=== PATIENT | male | born 1955 | race Caucasian/White ===

== ENCOUNTER 2024-02-27 11:23 | Inpatient (IN) | payer OTHER ==
[2024-02-27] MEDS ORDERED: MECLIZINE HCL 12.5 MG TAB ONE (12:10)
[2024-02-27] MEDS ORDERED: NA CHLORIDE 0.9% 500 ML ONE (12:10)
[2024-02-27 12:39] LABS: Absolute Lymphocytes (CBC) 0.8 K/uL (0.7-4.9); Absolute Monocytes 1.3 K/uL (0.1-1.3); Absolute Neutrophil 15.7 K/uL (1.8-8.0); Basophils % 0.2 % (0-1.3); Hemoglobin 15.9 g/dL (13.6-17.9); Lymphocytes % 4.4 % (15.3-44.8); MCH 30.1 pg (27.0-35.0); MCHC 33.1 g/dL (32.0-36.0); MPV 8.5 fL (7.6-11.3); Monocytes % 7.2 % (3.3-12.3); Neutrophils % 88.2 % (41.7-73.7); Platelets 268 thou/uL (152-406); RBC Red Blood Cell Count 5.28 M/uL (4.33-5.43); Red Cell Distribution Width 14.9 % (12.1-15.2)
[2024-02-27 12:49] LABS: PT Prothrombin Time 12.3 SECONDS (9.4-12.5); PTT, Activated Partial Thromb 31.1 SECONDS (24.3-36.9); Protime INR 1.1
[2024-02-27 13:00] LABS: Anion Gap 18.9 mEq/L (5.0-15.0)
[2024-02-27 13:02] LABS: Potassium 3.9 mEq/L (3.5-5.1)
[2024-02-27] MEDS ORDERED: METOPROLOL TAR 25 MG TAB ONE ×2 (13:09→15:45)
[2024-02-27] MEDS ORDERED: METOPROLOL TARTRATE 5 MG/5 ML INJ IV ONE (13:10)
[2024-02-27] MEDS ORDERED: MAGNESIUM SULFATE 1 gm IVPB 1 GM/100 ML BAG IV ONE (13:10)
--- NOTE | 2024-02-27 13:30 | RAD REPORT ---
EXAMINATION: CT HEAD WITHOUT CONTRAST CLINICAL INDICATION: Male, 69 years old.DIZZINESS TECHNIQUE: Axial CT images from the skull base to the vertex without intravenous contrast. Coronal an d sagittal reformatted images were created from the data set. One or more of the following dose reduction techniques were used: Automated exposure control, adjustment of the mA and/or kV according to patient size, and/or iterative reconstruction. Unless otherwise specified, incidental findings do not require dedicated imaging follow-up. [id number]. COMPARISON: No prior exam. FINDINGS: INTRACRANIAL: No acute intracranial hemorrhage. No hydrocephalus. No mass effect or midline shift. Pr esumably remote left cerebellar hemisphere infarct. Mild chronic small vessel ischemic changes. VASCULATURE: No visualized abnormalities in the arteries or dural venous sinuses. SCALP/SKULL: No significant soft tissue or osseous abnormalities. SINUSES: The visualized paranasal sinuses and mastoid air cells are predominantly clear. 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 No acute intracranial abnormality. No large vascular territory infarction or intracranial hemorrhage.
--- NOTE | 2024-02-27 13:35 | RAD REPORT ---
EXAMINATION: CTA NECK CLINICAL INDICATION: Male, 69 years old. hx of cerebellar stroke, dizzy TECHNIQUE: Axial CT images were obtained from the aortic arch to the skull base after intravenous con trast utilizing angiographic protocol with 3D post-processing (maximum intensity projection images, volume rendered images and/or shaded surface rendered images). One or more of the following dose redu ction techniques were used: Automated exposure control, adjustment of the mA and/or kV according to patient size, and/or iterative reconstruction. Unless otherwise specified, incidental findings do not require dedicated imaging follow-up. [id number]. NASCET criteria used. Mild 0-49% stenosis Moderate 50-69% stenosis Severe 70-99% stenosis COMPARISON: No prior exam. FINDINGS: AORTA: The imaged aortic arch is normal. CCA: The common carotid arteries are patent and normal in caliber. ICA/ECA: Bilateral internal and external carotid arteries are patent. There is no significant interna l carotid artery stenosis. Where applicable, degree of stenosis is measured using NASCET-like criteria. VERTEBRAL: Left dominant. Patent. SOFT TISSUE: No significant neck soft tissue abnormalities. The visualized lung apices are clear. 3D images confirm these findings. IMPRESSION: No flow limiting stenosis within neck. No dissection.
--- NOTE | 2024-02-27 13:39 | RAD REPORT ---
EXAMINATION: CTA HEAD CLINICAL INDICATION: Male, 69 years old. DIZZY TECHNIQUE: Axial CT images were obtained through the head after intravenous contrast utilizing angiog raphic protocol with 3D post-processing (maximum intensity projection images, volume rendered images and/or shaded surface rendered images). One or more of the following dose reduction technique s were used: Automated exposure control, adjustment of the mA and/or kV according to patient size, and/or iterative reconstruction. Unless otherwise specified, incidental findings do not require dedic ated imaging follow-up. COMPARISON: No prior exam. FINDINGS: ICA: The petrous, cavernous, and supraclinoid segments of the bilateral internal carotid arteries are normal. The ophthalmic artery origins are visualized and normal. The posterior communicating arteries are patent. JOHNNY: Anterior cerebral arteries are normal bilaterally. The anterior communicating artery is patent. MCA: Middle cerebral arteries are normal bilaterally. BALLISTICIAN: Posterior cerebral arteries are normal bilaterally. Vertebrobasilar: Slightly left dominant vertebral artery. Focal calcification but no flow-limiting st enosis involving the left vertebral artery. Right vertebral artery is patent. The basilar artery is patent. 3D images confirm these findings. IMPRESSION: No occlusion, aneurysm, or hemodynamically significant stenosis identified.
[2024-02-27 14:21] LABS: Blood Morphology Comment NOT SEEN (NOT SEEN); Platelet Estimate ADEQ; White Blood Cell Scan OK (OK)
--- NOTE | 2024-02-27 14:52 | RAD REPORT ---
EXAMINATION: MRI BRAIN WITHOUT CONTRAST CLINICAL INDICATION: Male, 69 years old. eval for posterior CVA TECHNIQUE: Multiplanar multisequence MR images of the brain were obtained without intravenous contras t. Unless otherwise specified, incidental findings do not require dedicated imaging follow-up. [id number]. COMPARISON: Same-day head CT FINDINGS: INTRACRANIAL: Diffusion-weighted images show no acute or early subacute infarction. No abnormal brain parenchymal signal. The ventricles are normal in size and morphology. No augmented susceptibility. There is no mass effect or midline shift. No abnormal extraaxial fluid collection. Remote left inferi or cerebellar infarct. Mild chronic small vessel ischemic changes. Partially empty sella, typically normal variant VASCULATURE: Normal signal voids in the larger intracranial arteries and dural venous sinuses. SINUSES: Left mastoid fluid. BONE: The marrow signal pattern is within normal limits. IMPRESSION: No significant intracranial abnormalities. Specifically, no evidence of acute infarct. Remote left ce rebellar infarct.
--- NOTE | 2024-02-27 15:27 | EDPHYS ---
Physician Documentation [facility] Name: Leroy Marx Age: 69 yrs Sex: Male : 1955 Arrival Date: 02/27/2024 Time: 11:23 Bed 3 Private MD: ED Physician James Waterman HPI: 02/26 12:00 This 69 yrs old Male presents to ER via Wheelchair with complaints of Dizziness. rn 12:00 The patient's problem is reported as difficulty walking. Onset: The symptoms/episode rn began/occurred 3 day(s) ago. Duration: The episodes are intermittent. The symptoms are alleviated by Laying down and not moving. The patient presents with feeling off balance. Patient reports 2 to 3 days of feeling off balance, needs to hold onto objects to not fall. Denies other focal neurological deficit. Specifically denies any vision changes/speech changes/swallowing issues/weakness or numbness. Has had a cerebellar stroke in the past and states although similar does not feel as bad as when he had the stroke.. Historical: - Allergies: 11:41 No Known Allergies; hb - PMHx: 11:42 CVA; hb - Immunization history:: Adult Immunizations up to date. - Infectious Disease History:: Denies. - Family history:: not pertinent. - Hospitalizations: : No recent hospitalization is reported. - Social history:: Smoking status: Patient denies any tobacco usage or history of. ROS: 12:00 Constitutional: Negative for fever, chills, and weight loss, Eyes: Negative for injury, rn pain, redness, and discharge, Neck: Negative for injury, pain, and swelling, Cardiovascular: Negative for chest pain, palpitations, and edema, Respiratory: Negative for shortness of breath, cough, wheezing, and pleuritic chest pain, Abdomen/GI: Positive for nausea Back: Negative for injury and pain, MS/Extremity: Negative for injury and deformity, Skin: Negative for injury, rash, and discoloration, Neuro: Negative for headache, weakness, numbness, tingling, and seizure, Exam: 12:00 Constitutional: This is a well developed, well nourished patient who is awake, alert, rn and in no acute distress. Head/Face: Normocephalic, atraumatic. Eyes: Pupils equal round and reactive to light, extra-ocular motions intact Cardiovascular: Regular rate and rhythm. No pulse deficits. Respiratory: No increased work of breathing, no retractions or nasal flaring. Skin: Warm, dry MS/ Extremity: Pulses equal, no cyanosis. Neurovascular intact. Full, normal range of motion. Equal circumference. Neuro: Awake and alert, GCS 15, oriented to person, place, time, and situation. Cranial nerves II-XII grossly intact. Motor strength 5/5 in all extremities. Sensory grossly intact. Normal vtzqjc-jt-kzsx and bktm-zy-biit testing 13:16 ECG was reviewed by the Attending Physician. rn Vital Signs: 11:39 BP 107 / 69; Pulse 68; Resp 16; Temp 97.8(TE); Pulse Ox 99% on R/A; Pain 0/10; hb 15:30 BP 133 / 107; Pulse 115; Resp 27; Pulse Ox 94% ; Weight 108.86 kg; ko1 11:39 Pain Scale: Adult hb MDM: 11:38 Medical Screening Exam initiated rn 13:38 ED course: Patient initially with heart rate in the 60s, shortly after being placed in rn room patient became tachycardic to the 150s, denies any chest pain or shortness of breath. ECG shows irregularity, slightly widened QRS, more likely a variant conduction. Metoprolol ordered for rate control as well as IV magnesium and will reevaluate. Patient denies history of arrhythmia or atrial fibrillation.. 15:25 Differential diagnosis: CVA, TIA, metabolic disorder, MT, arrhythmia. Data reviewed: rn vital signs, nurses notes, lab test result(s), EKG, radiologic studies, CT scan, MRI, and as a result, I will admit patient. Consideration of Admission/Observation Patient was admitted/placed on observation. Escalation of care including admission/observation considered. Counseling: I had a detailed discussion with the patient and/or guardian regarding the historical points, exam findings, and any diagnostic results supporting the discharge/admit diagnosis, lab results, radiology results, the need for further work-up and treatment in the hospital. Response to treatment: the patient's symptoms have mildly improved after treatment, and as a result, I will admit patient. ED course: Patient with new onset A-fib with RVR, heart rate was 150s, down to 110s with metoprolol. Patient feels better already. Father and brother both had A-fib. Does not take anticoagulants. Lovenox ordered. Admitted to Dr. Delgado for further care and cardiology consultation.. 15:45 ED course: Dr. Delgado request sotalol 80 mg twice daily and Eliquis 5 mg twice daily.. rn 02/26 11:48 Order name: Basic Metabolic Panel; Complete Time: 13:03 rn 02/26 11:48 Order name: CBC with Diff; Complete Time: 14:41 rn 02/26 11:48 Order name: High Sensitivity Troponin; Complete Time: 13:03 rn 02/26 11:48 Order name: Protime (+inr); Complete Time: 13:03 rn 02/26 11:48 Order name: Ptt, Activated; Complete Time: 13:03 rn 02/26 14:22 Order name: CBC Smear Scan; Complete Time: 14:41 EDUT 02/26 11:48 Order name: CT Neck Angio; Complete Time: 13:42 rn 02/26 11:48 Order name: CT Head Brain wo Cont; Complete Time: 13:42 rn 02/26 11:48 Order name: Brain Wo Cont MRI; Complete Time: 14:54 rn 02/26 13:05 Order name: Head angio; Complete Time: 13:42 EDUT 02/26 15:50 Order name: CONS Physician Consult EDUT 02/26 11:48 Order name: Accucheck; Complete Time: 13:14 rn 02/26 11:48 Order name: Cardiac monitoring; Complete Time: 13:14 rn 02/26 11:48 Order name: EKG - Nurse/Tech; Complete Time: 13:02 rn 02/26 11:48 Order name: IV Saline Lock; Complete Time: 12:35 rn 02/26 11:48 Order name: Labs collected and sent; Complete Time: 12:35 rn 02/26 11:48 Order name: NPO; Complete Time: 12:35 rn 02/26 11:48 Order name: O2 Per Protocol; Complete Time: 12:35 rn 02/26 11:48 Order name: O2 Sat Monitoring; Complete Time: 12:35 rn 02/26 11:48 Order name: Stroke Swallow Screen; Complete Time: 12:35 rn EC:16 Rate is 154 beats/min. Rhythm is irregularly irregular. Left axis deviation noted. QRS rn is positive in lead I and negative in lead aVF. QRS interval is normal at [address] changes noted. Clinical impression: Atrial Fibrillation. Interpreted by me. Reviewed by me. Administered Medications: 12:35 Drug: NS 0.9% IV 500 ml IV at calculated rate once; to be given as a bolus over 30 ap3 minutes Route: IV; Rate: calculated rate; Site: right antecubital; 12:36 Drug: Meclizine PO 50 mg PO once Route: PO; hb 13:13 Drug: Metoprolol IVP 5 mg IVP every 5 minutes; Hold for SBP < 100 or HR < 60. x3 Route: ko1 IVP; Site: right antecubital; 13:14 Drug: Metoprolol PO 25 mg PO once Route: PO; ko1 15:00 Drug: Magnesium Sulfate IVPB 1 grams IVPB once over 1 hrs Route: IVPB; Infused Over: 1 ko1 hrs; Site: right antecubital; 15:00 Drug: Metoprolol IVP 5 mg IVP every 5 minutes; Hold for SBP < 100 or HR < 60. x3 Route: ko1 IVP; Site: right antecubital; 15:41 Drug: Metoprolol IVP 5 mg IVP every 5 minutes; Hold for SBP < 100 or HR < 60. x3 Route: ko1 IVP; Site: right antecubital; 15:48 Drug: Enoxaparin Sub-Q 1 mg/kg Sub-Q once Route: Sub-Q; Site: right lower abdomen; jb4 15:48 Drug: Metoprolol PO 25 mg PO once Route: PO; jb4 Disposition Summary: 02/27/24 15:27 Hospitalization Ordered Notes: Hospitalization Status: Inpatient Admission rn Provider: Josue Delgado [facility] Condition: Stable rn Problem: new rn Symptoms: have improved rn Bed/Room Type: Standard rn Room Assignment: 223(02/27/24 15:56) bd Diagnosis - Dizziness and giddiness rn - Persistent atrial fibrillation - new onset, iwth rapid ventricular rate(02/27/24 rn 15:27) Forms: - Medication Reconciliation Form rn - SBAR form rn - Leadership Thank You Letter rn Signatures: Dispatcher [employer] EDMS Judie Goldberg Roman, MD MD rn Baxter, Heather, RN RN hb Bryson, James, RN RN jb4 Marti Zuniga RN RN ap3 Raiza Sosa, RN RN ko1 Corrections: (The following items were deleted from the chart) 11: 11:49 BASIC METABOLIC PANEL+C.LAB.BRZ ordered. EDMS EDMS 11: 11:49 CBC+H.LAB.BRZ ordered. EDMS EDMS 11:49 11:49 Troponin High Sensitivity+C.LAB.BRZ ordered. EDMS EDMS 11:49 11:49 PROTIME (+INR)+COAG.LAB.BRZ ordered. EDMS EDMS 11:49 11:49 PTT, ACTIVATED+COAG.LAB.BRZ ordered. EDMS EDMS 11:49 11:49 Neck Angio+CT.RAD.BRZ ordered. EDMS EDMS 11:49 11:49 Head Brain Wo Cont+CT.RAD.BRZ ordered. EDMS EDMS 11:51 11:51 Brain Wo Cont+MRI.RAD.BRZ ordered. EDMS EDMS 15:27 15:27 Persistent atrial fibrillation rn rn 15:56 15:27 rn bd
--- NOTE | 2024-02-27 15:27 | ER ---
Nurse's Notes [facility] Name: Leroy Marx Age: 69 yrs Sex: Male : 1955 Arrival Date: 02/27/2024 Time: 11:23 Bed 3 Private MD: Diagnosis: Persistent atrial fibrillation-new onset, iwth rapid ventricular rate;Dizziness and giddiness Presentation: 02/26 11:38 Chief complaint: Dizziness that started after N/V episode 3 days ago. hb 11:38 Method Of Arrival: Wheelchair hb 11:39 Coronavirus screen: At this time, the client does not indicate any symptoms associated hb with coronavirus-19. 11:39 Ebola Screen: No symptoms or risks identified at this time. Initial Sepsis Screen: Does hb the patient meet any 2 criteria? No. Patient's initial sepsis screen is negative. Does the patient have a suspected source of infection? No. Patient's initial sepsis screen is negative. Risk Assessment: Do you want to hurt yourself or someone else? Patient reports no desire to harm self or others. Onset of symptoms was February 24, 2024. 11:41 Acuity: MARVIN 3 hb 13:38 Acuity: MARVIN 2 ap3 Historical: - Allergies: 11:41 No Known Allergies; hb - PMHx: 11:42 CVA; hb - Immunization history:: Adult Immunizations up to date. - Infectious Disease History:: Denies. - Family history:: not pertinent. - Hospitalizations: : No recent hospitalization is reported. - Social history:: Smoking status: Patient denies any tobacco usage or history of. Screenin:35 [place] Swallow Protocol Exclusion Criteria: Unable to remain alert for testing: No NPO ap3 for medical/surgical reason by provider order No Brief Cognitive Screen What is your name? Normal, Where are you right now? Normal, What year is it? Normal. Oral Mechanism Examination Facial Symmetry: Normal, Motion: Normal, Lip Closure: Normal, Oral Mechanism Result: Normal. 3 oz Water Swallow Challenge: Pt able to drink all water without stopping, coughing, choking or throat clearing: Yes Result: PASS. 12:37 [facility] ED Fall Risk Assessment (Adult) History of falling in the last 3 months, hb including since admission No falls in past 3 months (0 pts) Confusion or Disorientation No (0 pts) Intoxicated or Sedated No (0 pts) Impaired Gait Yes (1 pt) Mobility Assist Device Used No (0 pt) Altered Elimination No (0 pt) Score/Fall Risk Level 3 or more points = High Risk Oriented to surroundings, Maintained a safe environment, Educated pt \T\ family on fall prevention, incl call for assistance when getting out of bed, Assessed \T\ reinforced patient's understanding of fall precautions, Hourly rounding (assess needs \T\ fall precautionary measures) done. Abuse screen: Denies threats or abuse. Denies injuries from another. Nutritional screening: No deficits noted. Tuberculosis screening: No symptoms or risk factors identified. Assessment: 11:37 Reassessment: Dr. Waterman in triage to assess pt. VAN NEGATIVE, NIH 0, pt outside window, hb decision to not call Code Stroke per provider. 12:38 Reassessment: Patient and/or family updated on plan of care and expected duration. Pain ap3 level reassessed. Patient is alert, oriented x 3, equal unlabored respirations, skin warm/dry/pink. General: Appears in no apparent distress. Behavior is calm, cooperative. Pain: Denies pain. Neuro: Level of Consciousness is awake, alert, obeys commands, Oriented to person, place, time, situation, Speech is normal, Reports dizziness, and balance issues since 02/24/24. 13:13 General: this nurse notified ERP and charge nurse of EKG and heart rate changes. ap3 patient was moved into a room with central monitoring. Report given to BONNIE Eastman. 15:00 Reassessment: PT RETURNED FROM MRI. ko1 Vital Signs: 11:39 BP 107 / 69; Pulse 68; Resp 16; Temp 97.8(TE); Pulse Ox 99% on R/A; Pain 0/10; hb 15:30 BP 133 / 107; Pulse 115; Resp 27; Pulse Ox 94% ; Weight 108.86 kg; ko1 11:39 Pain Scale: Adult hb ED Course: 11:27 Patient arrived in ED. ra3 11:38 James Waterman MD is Attending Physician. rn 11:41 Arm band placed on. hb 11:42 Triage completed. hb 12:38 Patient has correct armband on for positive identification. Bed in low position. Call hb light in reach. Provided Education on: use of call light . 12:39 Marti Zuniga, RN is Primary Nurse. ap3 12:39 Inserted saline lock: 20 gauge in right antecubital area, using aseptic technique. ap3 Blood collected. Flushed with 10 mL NS. 13:03 Notified ED physician of a critical lab result(s). Troponin 558. ll1 13:13 EKG done, by ED staff, reviewed by James Waterman MD. ap3 13:14 Report given to BONNIE Eastman. ap3 13:26 CT Neck Angio In Process Unspecified. EDMS 13:26 CT Head Brain wo Cont In Process Unspecified. EDMS 13:26 Head angio In Process Unspecified. EDMS 14:46 Brain Wo Cont MRI In Process Unspecified. EDMS 15:26 Josue Delgado MD is Hospitalizing Provider. rn 16:29 Report faxed at [phone]. Called charge nurse to verify it was received and no answer. cm10 Called extension [phone] with no answer. Administered Medications: 12:35 Drug: NS 0.9% IV 500 ml IV at calculated rate once; to be given as a bolus over 30 ap3 minutes Route: IV; Rate: calculated rate; Site: right antecubital; 12:36 Drug: Meclizine PO 50 mg PO once Route: PO; hb 13:13 Drug: Metoprolol IVP 5 mg IVP every 5 minutes; Hold for SBP < 100 or HR < 60. x3 Route: ko1 IVP; Site: right antecubital; 13:14 Drug: Metoprolol PO 25 mg PO once Route: PO; ko1 15:00 Drug: Magnesium Sulfate IVPB 1 grams IVPB once over 1 hrs Route: IVPB; Infused Over: 1 ko1 hrs; Site: right antecubital; 15:00 Drug: Metoprolol IVP 5 mg IVP every 5 minutes; Hold for SBP < 100 or HR < 60. x3 Route: ko1 IVP; Site: right antecubital; 15:41 Drug: Metoprolol IVP 5 mg IVP every 5 minutes; Hold for SBP < 100 or HR < 60. x3 Route: ko1 IVP; Site: right antecubital; 15:48 Drug: Enoxaparin Sub-Q 1 mg/kg Sub-Q once Route: Sub-Q; Site: right lower abdomen; jb4 15:48 Drug: Metoprolol PO 25 mg PO once Route: PO; jb4 Medication: 12:38 VIS not applicable for this client. hb Outcome: 15:27 Decision to Hospitalize by Provider. rn 17:53 Patient left the ED. ll1 Signatures: Dispatcher [employer] EDJames Ireland MD MD rn Baxter, Heather, RN RN hb Gus Delatorre RN RN jb4 Marti Zuniga RN RN oumar3 Angie Carrizales RN RN ll1 Raiza Sosa RN RN elder1 Anu Thakur RN RN cm10 Yolanda Palacios ra3 Corrections: (The following items were deleted from the chart) 12:38 11:37 Reassessment: Dr. Waterman in triage to assess pt hb hb 15:41 15:30 BP 133 / 107; Pulse 115bpm; Resp 27bpm; Pulse Ox 94%; ko1 ko1
[2024-02-27] MEDS ORDERED: ENOXAPARIN 100 MG/ML SYR SQ ONE (15:45)
[2024-02-27 17:59] VITALS: BMI 34.4
[2024-02-27] MEDS: SOTALOL HCL 80 MG TAB PO SCH (18:00)
[2024-02-27] MEDS ORDERED: ONDANSETRON 4 MG (ODT) TAB PO PRN (18:26)
--- NOTE | 2024-02-27 18:33 | P.HP ---
Certification for Inpatient Patient admitted to: Inpatient With expected LOS: >2 Midnights Practitioner: I am a practitioner with admitting privileges, knowledge of patient current condition, hospital course, and medical plan of care. Services: Services provided to patient in accordance with Admission requirements found in Title 42 Section 412.3 of the Code of Federal Regulations Patient History Date of Service: 02/27/24 Reason for admission: EPIG PAIN, WEAKNESS. History of Present Illness: GEETA HAS HAD A STROKE WITH NO RESIDUAL ABOUT A FEW WEEKS AGO. HE CAME TO OFFICE FIRST TIME ABOUT TWO WEEKS AGO. HE TODAY CAME TO ER HE WAS WEAK, HAD EPIG PAIN AND WAS FOUND TO HAVE RAPID A FIB, FIRST TIME. HE IS NOW STABLE AFTER SOTALOL AND ELIQUIS. I CALLED DR. HAMPTON TROPONIN IS IN RANGE OF 500. HE WANTS TO CONTINUE ELIQUIS AND SEE HIM TOMORROW. PATIENT IS NOW PAINFREE. Allergies No Known Allergies Allergy (Unverified 02/27/24 17:36) Home medications list reviewed: Yes Home Medications: Atorvastatin Calcium 40 mg PO BEDTIME 02/27/24 Losartan Potassium [Cozaar*] 50 mg PO BEDTIME 02/27/24 Meclizine HCl 25 mg PO BEDTIME 02/27/24 Metformin ER [Glucophage ER*] 500 mg PO BID 02/27/24 Ondansetron [Zofran (Odt)*] 4 mg PO Q6HR PRN 02/27/24 - Past Medical/Surgical History Has patient received pneumonia vaccine in the past: No -: diabetes -: hld -: htn -: cva -: sebacious cyst removed - Social History Smoking Status: Never smoker Alcohol use: No CD- Drugs: No Caffeine use: Yes Place of Residence: Home Review of Systems 10-point ROS is otherwise unremarkable Physical Examination - Vital Signs Temperature: 97.2 F Blood Pressure: 117/73 Pulse: 60 Respirations: 20 Pulse Ox (%): 97 - Physical Exam General: Oriented x3, Mild distress, Obese HEENT: Atraumatic, PERRLA, Mucous membr. moist/pink, EOMI, Sclerae nonicteric Neck: Supple, 2+ carotid pulse no bruit, No LAD, Without JVD or thyroid ab normality Respiratory: Clear to auscultation bilaterally, Normal air movement Cardiovascular: Regular rate/rhythm, Normal S1 S2 Gastrointestinal: Normal bowel sounds, No tenderness Musculoskeletal: No tenderness Integumentary: No rashes Neurological: Normal gait, Normal speech, Normal strength at 5/5 x4 extr, Normal tone, Normal affect Lymphatics: No axilla or inguinal lymphadenopathy - Studies Laboratory Data (last 24 hrs) 02/27/24 02/27/24 02/27/24 12:20 12:20 12:20 WBC 17.80 H Hgb 15.9 Hct 48.0 Plt Count 268 PT 12.3 INR 1.10 APTT 31.1 Sodium 133 L Potassium 3.9 BUN 45 H Creatinine 1.25 Glucose 212 H Assessment and Plan - Problems (Diagnosis) (1) Rapid atrial fibrillation Current Visit: Yes Status: Acute Plan: CONT SOTALOL AND ELIQUIS TROP CAN BE HIGH FROM RAPID A FIB. MAY NEED OUTPATIENT CATH OR ST TEST DR. HAMPTON IS AWARE. (2) Elevated troponin I level Current Visit: Yes Status: Acute (3) History of stroke Current Visit: Yes Status: Chronic Plan: RECENT. - Advance Directives Does patient have a Living Will: No Does patient have a Durable POA for Healthcare: No
[2024-02-27] MEDS: LOSARTAN POTASSIUM 50 MG TABLET PO SCH (21:00)
[2024-02-27] MEDS ORDERED: HOME MED 1 EA UNK (Meclizine Hcl [Meclizine Hcl] 25 MG Tablet) PO SCH (21:00)
[2024-02-27] MEDS: MECLIZINE HCL 12.5 MG TAB PO SCH (21:00)
[2024-02-27] MEDS: ATORVASTATIN 40 MG TAB PO SCH (21:10)
[2024-02-27] MEDS: APIXABAN 5 MG TABLET PO SCH (21:11)
[2024-02-27] MEDS: HEPARIN/D5W 25,000 UNIT/500 ML BAG IV SCH (22:26)
[2024-02-28 08:00] LABS: Absolute Basophils 0.1 K/uL (0-0.5); Absolute Eosinophils 0.1 K/uL (0-0.5); Absolute Lymphocytes (CBC) 1.3 K/uL (0.7-4.9); Absolute Monocytes 1.8 K/uL (0.1-1.3); Absolute Neutrophil 13.1 K/uL (1.8-8.0); Basophils % 0.4 % (0-1.3); Eosinophils % 0.5 % (0-4.4); Hematocrit 44.2 % (39.6-49.0); Hemoglobin 14.9 g/dL (13.6-17.9); Lymphocytes % 7.7 % (15.3-44.8); MCHC 33.8 g/dL (32.0-36.0); MCV 88.8 fL (80-100); MPV 7.6 fL (7.6-11.3); Monocytes % 11.1 % (3.3-12.3); Neutrophils % 80.3 % (41.7-73.7); Nucleated Red Blood Cells % 0.1 % (0-0); Platelets 289 thou/uL (152-406); RBC Red Blood Cell Count 4.98 M/uL (4.33-5.43); Red Cell Distribution Width 14.9 % (12.1-15.2)
[2024-02-28 08:14] LABS: Anion Gap 14.7 mEq/L (5.0-15.0); Potassium 3.7 mEq/L (3.5-5.1)
--- NOTE | 2024-02-28 13:47 | P.CNS ---
Date of Consult: 02/28/24 Chief Complaint: EPIG PAIN, WEAKNESS. History of Present Illness: Patient with PMH of recent cerebellar stroke, presented with N&V for the last few days, weakness, epigastric discomfort, palpitations, denies chest pain, no SALAZAR, no syncope. Allergies No Known Allergies Allergy (Unverified 02/27/24 17:36) Home medications list reviewed: Yes Home Medications: Dapagliflozin Propanediol [Farxiga] 10 mg PO 02/27/24 RX: Atorvastatin Calcium 40 mg PO BEDTIME 02/27/24 RX: Losartan Potassium [Cozaar*] 50 mg PO BEDTIME 02/27/24 RX: Meclizine HCl 25 mg PO BEDTIME 02/27/24 RX: Metformin ER [Glucophage ER*] 500 mg PO BID 02/27/24 RX: Ondansetron [Zofran (Odt)*] 4 mg PO Q6HR PRN 02/27/24 - Past Medical/Surgical History -: diabetes -: hld -: htn -: cva -: sebacious cyst removed - Social History Alcohol use: No CD- Drugs: No Caffeine use: Yes Place of Residence: Home Review of Systems 10-point ROS is otherwise unremarkable Physical Examination Temp Pulse Resp BP Pulse Ox 97.0 F 102 H 20 134/84 95 02/28/24 12:00 02/28/24 12:00 02/28/24 12:00 02/28/24 12:00 02/28/24 12:00 General: Alert, In no apparent distress HEENT: Atraumatic, PERRLA, Mucous membr. moist/pink, EOMI, Sclerae nonicteric Neck: Supple, 2+ carotid pulse no bruit, No LAD, Without JVD or thyroid abnormality Respiratory: Clear to auscultation bilaterally, Normal air movement Cardiovascular: Irregular heart rate/rhythm Gastrointestinal: Normal bowel sounds, No tenderness Musculoskeletal: No tenderness Integumentary: No rashes Neurological: Normal gait, Normal speech, Normal tone, Normal affect Lymphatics: No axilla or inguinal lymphadenopathy Laboratory Data (last 24 hrs) 02/27/24 12:20 WBC 17.80 H Hgb 15.9 Hct 48.0 Plt Count 268 - Problems (1) Elevated troponin I level Current Visit: Yes Status: Acute Plan: most likely type 2 MT from AF. continue to trend cardiac enzymes until down trending, if next set is higher then might need to transfer to medical center for coronary angiogram but if trending down then will see as outpatient for stress test. (2) Rapid atrial fibrillation Current Visit: Yes Status: Acute Plan: continue Sotalol 80 mg po BID continue Hpearin drip for now get Echo NPO after midnight for possible ANAYELI DCCV in am.
[2024-02-28] MEDS: METFORMIN ER 500 MG TAB PO SCH (16:58)
--- NOTE | 2024-02-29 07:02 | ECHO ---
HEIGHT: 5 ft 10 in WEIGHT: 240 lb 0 oz DATE OF STUDY: 02/28/[address]: Scot Gutierrez MD 2-DIMENSIONAL: YES M.MODE: YES DOPPLER: YES COLOR FLOW: YES TDS: PORTABLE: YES DEFINITY: BUBBLE STUDY: DIAGNOSIS: NON ST ELEVATION MYOCARDIAL INFARCTION CARDIAC HISTORY: CATHERIZATION: SURGERY: PROSTHETIC VALVE: PACEMAKER: MEASUREMENTS (cm) DIASTOLIC (NORMALS) SYSTOLIC (NORMALS) IVSd 1.1 (0.6-1.2) LA Diam 3.7 (1.9-4.0) LVEF 55-60% LVIDd 4.4 (3.5-5.7) LVIDs 3.1 (2.0-3.5) %FS 31% LVPWd 1.2 (0.6-1.2) Ao Diam 2.6 (2.0-3.7) 2 DIMENSIONAL ASSESSMENT: RIGHT ATRIUM: NORMAL LEFT ATRIUM: MILD DILATED RIGHT VENTRICLE: NORMAL LEFT VENTRICLE: NORMAL TRICUSPID VALVE: NORMAL MITRAL VALVE: NORMAL PULMONIC VALVE: NORMAL AORTIC VALVE: NORMAL PERICARDIAL EFFUSION: NONE AORTIC ROOT: NORMAL LEFT VENTRICULAR WALL MOTION: NORMAL DOPPLER/COLOR FLOW: NORMAL COMMENTS: 1. NORMAL LEFT VENTRICULAR SYSTOLIC FUNCTION, EJECTION FRACTION 55-60%, NORMAL WALL MOTION 2. NORMAL DIASTOLIC FUNCTION TECHNOLOGIST: FORREST GARRIDO
[2024-02-29] MEDS ORDERED: LIDOCAINE 1% MPF 5 ML VIAL ONE (08:04)
[2024-02-29] MEDS ORDERED: propofoL 200 MG/20 ML VIAL IV ONE (08:04)
[2024-02-29] MEDS: NA CHLORIDE 0.9% 500 ML ONE (08:33)
[2024-02-29] MEDS: HOME MED 1 EA UNK (Dapagliflozin Propanediol [Farxiga] 10 MG Tablet) PO SCH (08:33)
--- NOTE | 2024-02-29 10:06 | P.PN ---
Subjective Date of Service: 02/29/24 Chief Complaint: EPIG PAIN, WEAKNESS. Subjective: No new changes, No C/O voiced, Tolerating diet, Ambulating, Improving Review of Systems 10-point ROS is otherwise unremarkable Physical Examination - Vital Signs Temperature: 98.6 F Blood Pressure: 124/58 Pulse: 69 Respirations: 16 Pulse Ox (%): 96 - Physical Exam General: Alert, In no apparent distress HEENT: Atraumatic, PERRLA, EOMI Neck: Supple, JVD not distended Respiratory: Clear to auscultation bilaterally, Normal air movement Cardiovascular: Regular rate/rhythm, Normal S1 S2 Gastrointestinal: Normal bowel sounds, No tenderness Musculoskeletal: No tenderness Integumentary: No rashes Neurological: Normal speech, Normal tone, Normal affect Lymphatics: No axilla or inguinal lymphadenopathy - Studies Medications List Reviewed: Yes Assessment And Plan - Current Problems (Diagnosis) (1) Elevated troponin I level Current Visit: Yes Status: Acute Plan: most likely type 2 DC from AF. cardiac enzymes down trending, outpatient for stress test. ASA 81 mg daily Lipitor 40 mg daily (2) Rapid atrial fibrillation Current Visit: Yes Status: Acute Plan: Patient is s/p ANAYELI DCCV continue Sotalol 80 mg po BID start Eliquis 5 mg po BID Echo shows normal systolic and diastolic function (3) HTN (hypertension) Current Visit: Yes Status: Acute Plan: Losartan 50 mg daily
[2024-02-29 12:03] VITALS: BP 141/79; TEMP 97.7
[2024-02-29 12:09] VITALS: O2SAT 95
--- NOTE | 2024-02-29 12:12 | EKG ---
Test Date: 2024-02-29 Test Time: 08:07:08 Automatic Fabric Cutter: BRADLEY MEASUREMENT RESULTS: Intervals: Rate: 127 IN: QRSD: 144 QT: 356 QTc: 517 Maurice: P: IN: QRS: -87 T: 19 INTERPRETIVE STATEMENTS: Atrial fibrillation with rapid ventricular response Left axis deviation Right bundle branch block Inferior infarct, age undetermined Abnormal ECG Compared to ECG 02/27/2024 12:58:40 Ventricular premature complex(es) no longer present Wide-QRS tachycardia no longer present Myocardial infarct finding still present Electronically Signed On 02-29-24 12:11:50 CDT by Scot Gutierrez
--- NOTE | 2024-02-29 12:20 | EKG ---
Test Date: 2024-02-27 Test Time: 18:43:57 Tumbler Operator: MEASUREMENT RESULTS: Intervals: Rate: 107 CO: QRSD: 146 QT: 376 QTc: 501 [place]: P: CO: QRS: -82 T: -13 INTERPRETIVE STATEMENTS: Atrial fibrillation with rapid ventricular response Left axis deviation Right bundle branch block Inferior infarct, age undetermined Abnormal ECG Compared to ECG 02/27/2024 12:58:40 Ventricular premature complex(es) no longer present Wide-QRS tachycardia no longer present Myocardial infarct finding still present Electronically Signed On 02-29-24 12:16:31 CDT by Scot Gutierrez
--- NOTE | 2024-02-29 12:23 | EKG ---
Test Date: 2024-02-27 Test Time: 12:58:40 Speech Correction Consultant: ALP MEASUREMENT RESULTS: Intervals: Rate: 154 AL: QRSD: 134 QT: 334 QTc: 534 [place]: P: AL: QRS: -80 T: -13 INTERPRETIVE STATEMENTS: Atrial fibrillation with occasional premature ventricular complexes Left axis deviation Right bundle branch block Possible Lateral infarct, age undetermined Inferior infarct, age undetermined Abnormal ECG No previous ECG available for comparison Electronically Signed On 02-29-24 12:17:54 CDT by Scot Gutierrez
--- NOTE | 2024-02-29 13:22 | OP ---
Date of Procedure: 02/29/2024 Surgeon: Scot Gutierrez Procedure Performed: Transesophageal echocardiogram, cardioversion. Indication For Procedure: Atrial fibrillation. Complications: None. Estimated Blood Loss: None. Sedation: Done by Anesthesia team. Description Of Procedure: After risks, and benefits, and alternatives were explained to the patient, patient agreed to proceed with procedure and signed informed consent. Patient was brought back to he OR. A time-out was performed. Sedation was administered by Anesthesia Team. ANAYELI probe was inser marta, images were obtained, and then the ANAYELI probe out. Synchronized cardioversion was done with 200 joules. Patient was converted back into sinus rhythm. Patient was moved back to Recovery in stable condition. Assessment And Plan: Atrial fibrillation, status post successful transesophageal echocardiogram card ioversion. Plan will be to continue sotalol and continue Eliquis. VERONIQUE/ELIANA Voice ID: [id number] Report ID: [id number]
--- NOTE | 2024-02-29 13:28 | TEE ---
TRANSESOPHAGEAL ECHOCARDIOGRAM REPORT CARDIOLOGY DEPARTMENT DATE OF STUDY: 02/29/2024 HEIGHT: 5'10" WEIGHT: 240 lbs DIAGNOSIS: ATRIAL FIBRILLATION/ CARDIOVERSION DIRECTOR OF MANUFACTURING COMMENTS: ANAYELI CARDIAC HISTORY: CATHERIZATION: SURGERY: PROSTHETIC VALVE: PACEMAKER: 2 DIMENSIONAL ASSESSMENT: RIGHT ATRIUM: LEFT ATRIUM: RIGHT VENTRICLE: LEFT VENTRICLE: TRICUSPID VALVE: MITRAL VALVE: PULMONIC VALVE: AORTIC VALVE: PERICARDIAL EFFUSION: AORTIC ROOT: EJECTION FRACTION: LEFT VENTRICULAR WALL MOTION: DOPPLER/COLOR FLOW: COMMENTS: 1. MODERATE DILATED LEFT ATRIUM 2. NORMAL LEFT ATRIAL APPENDAGE, NO CLOT 3. MILD MITRAL REGURGITATION TECHNOLOGIST: FORREST GARRIDO
--- NOTE | 2024-02-29 21:14 | P.DS ---
Admission Date: 02/27/24 Discharge Date: 02/29/24 Disposition: ROUTINE DISCHARGE Discharge Condition: FAIR Reason for Admission: EPIG PAIN, WEAKNESS. - Problems (1) Rapid atrial fibrillation Status: Acute (2) Elevated troponin I level Status: Acute (3) History of stroke Status: Chronic Brief History of Present Illness: GEETA HAS HAD A STROKE WITH NO RESIDUAL ABOUT A FEW WEEKS AGO. HE CAME TO OFFICE FIRST TIME ABOUT TWO WEEKS AGO. HE TODAY CAME TO ER HE WAS WEAK, HAD EPIG PAIN AND WAS FOUND TO HAVE RAPID A FIB, FIRST TIME. HE IS NOW STABLE AFTER SOTALOL AND ELIQUIS. I CALLED DR. HAMPTON TROPONIN IS IN RANGE OF 500. HE WANTS TO CONTINUE ELIQUIS AND SEE HIM TOMORROW. PATIENT IS NOW PAINFREE. Hospital Course: GEETA CAME WITH EPIG PAIN AND RAPID A FIB. HE RULED IN FOR WA HE IS STABLE TROP IS TREANDING DOWN FROM MORE THAN 1000 DR. MORENO DID CARDIOVERSION. HE IS STABLE TO GO HOME ON ASA AND ELIQUIS. HE SILL FU WITH DR. HAMPTON FOR ST TEST. Vital Signs/Physical Exam: Temp Pulse Resp BP Pulse Ox 97.7 F 67 14 141/79 H 98 02/29/24 12:00 02/29/24 12:00 02/29/24 12:00 02/29/24 12:00 02/29/24 12:00 Laboratory Data at Discharge: WBC 16.40 thou/uL (4.3-10.9) H 02/28/24 07:53 Hgb 14.9 g/dL (13.6-17.9) 02/28/24 07:53 Hct 44.2 % (39.6-49.0) 02/28/24 07:53 Plt Count 289 thou/uL (152-406) 02/28/24 07:53 PT 12.3 SECONDS (9.4-12.5) 02/27/24 12:20 INR 1.10 02/27/24 12:20 APTT 72.6 SECONDS (24.3-36.9) H 02/29/24 11:53 Sodium 133 mEq/L (136-145) L 02/28/24 07:53 Potassium 3.7 mEq/L (3.5-5.1) 02/28/24 07:53 BUN 57 mg/dL (7-18) H 02/28/24 07:53 Creatinine 0.90 mg/dL (0.70-1.30) 02/28/24 07:53 Glucose 167 mg/dL (74-106) H 02/28/24 07:53 Home Medications: Atorvastatin Calcium 40 mg PO BEDTIME 02/27/24 Dapagliflozin Propanediol [Farxiga] 10 mg PO 02/27/24 Losartan Potassium [Cozaar*] 50 mg PO BEDTIME 02/27/24 Meclizine HCl 25 mg PO BEDTIME 02/27/24 Metformin ER [Glucophage ER*] 500 mg PO BID 02/27/24 Ondansetron [Zofran (Odt)*] 4 mg PO Q6HR PRN 02/27/24 Apixaban [Eliquis] 5 mg PO BID #60 tablet 02/29/24 Sotalol HCl [Betapace*] 80 mg PO BID 6AM 6PM #60 tab 02/29/24 New Medications: Sotalol HCl [Betapace*] 80 mg PO BID 6AM 6PM #60 tab Apixaban [Eliquis] 5 mg PO BID #60 tablet Followup: Josue Delgado MD [Primary Care Provider] - 1-2 Weeks Scot Hampton MD [ACTIVE - CAN ADMIT] - 1-2 Weeks
--- NOTE | 2024-02-29 21:16 | P.PN ---
Subjective Date of Service: 02/28/24 Chief Complaint: EPIG PAIN, WEAKNESS. Subjective: Improving HE IS STABLE NO HEMODYNAMIC CHANGES. WE HAD TO START SOTALOL AND ELIUQIS FOR A FIB. LATER WITH CE GOING UP HE WAS CHANGED TO HEPARITN PROTOCOL PLAN IS TO DO ST TEST OP IF TROP START TRENDING DOWN. Physical Examination - Vital Signs Temperature: 97.7 F Blood Pressure: 141/79 Pulse: 67 Respirations: 14 Pulse Ox (%): 98 - Physical Exam General: Oriented x3, Mild distress HEENT: Atraumatic, PERRLA, EOMI Neck: Supple, JVD not distended Respiratory: Clear to auscultation bilaterally, Normal air movement Cardiovascular: Abnormal S1 S2 Gastrointestinal: Normal bowel sounds, No tenderness Musculoskeletal: No tenderness Integumentary: No rashes Neurological: Normal speech, Normal tone, Normal affect Lymphatics: No axilla or inguinal lymphadenopathy - Studies Medications List Reviewed: Yes Assessment And Plan - Current Problems (Diagnosis) (1) Rapid atrial fibrillation Status: Acute Plan: CONT SOTALOL AND ELIQUIS TROP CAN BE HIGH FROM RAPID A FIB. MAY NEED OUTPATIENT CATH OR ST TEST DR. HAMPTON IS AWARE. CARDIOVERSION IF HE DID NOT CONVERT. (2) Elevated troponin I level Status: Acute (3) History of stroke Status: Chronic Plan: RECENT.
--- NOTE | 2024-03-01 14:16 | EKG ---
Test Date: 2024-02-29 Test Time: 09:47:28 Manager Medical Device: BRADLEY MEASUREMENT RESULTS: Intervals: Rate: 65 DE: 146 QRSD: 144 QT: 448 QTc: 465 [place]: P: 38 DE: 146 QRS: -73 T: 36 INTERPRETIVE STATEMENTS: Normal sinus rhythm Left axis deviation Right bundle branch block Possible Lateral infarct, age undetermined Inferior infarct, age undetermined Abnormal ECG Compared to ECG 02/29/2024 08:07:08 Atrial fibrillation no longer present Myocardial infarct finding still present Electronically Signed On 03-01-24 14:12:57 CDT by Scot Gutierrez
== END 2024-02-29 15:30 | disposition home or self-care (01) | DRG 282 ==
LOC: ER 11:23 → ERHOLD 15:46 → 2ND 16:46
PROVIDERS: ADMIT Internal Medicine; ATTEND Internal Medicine
PROC: B24BZZ4 Ultrasonography of Heart with Aorta, Transesophageal (ICD-10-PCS; principal; 2024-02-29)
PROC: 5A2204Z Restoration of Cardiac Rhythm, Single (ICD-10-PCS; 2024-02-29)
DX: I48.19 Other persistent atrial fibrillation (principal); I21.A1 Myocardial infarction type 2; E78.5 Hyperlipidemia, unspecified; E11.9 Type 2 diabetes mellitus without complications; E66.9 Obesity, unspecified; Z68.34 Body mass index [BMI] 34.0-34.9, adult; Z79.84 Long term (current) use of oral hypoglycemic drugs; Z86.73 Personal history of transient ischemic attack (TIA), and cerebral infarction without residual deficits; Z79.899 Other long term (current) drug therapy
CPT/HCPCS: 01922; 36415; 70450; 70496; 70498; 70551; 80048; 84484; 85025; 85610; 85730; 92960; 93005; 93306; 93312; 96372; 96374; 96375; 99284; J1650; J2003; J2704; J3475; J7040; J8597; Q9967

== ENCOUNTER 2024-05-30 09:00 | Day surgery (SDC) | payer OTHER ==
[2024-05-29 16:17] LABS: Absolute Basophils 0.1 K/uL (0-0.5); Absolute Eosinophils 0.5 K/uL (0-0.5); Absolute Lymphocytes (CBC) 2.1 K/uL (0.7-4.9); Absolute Monocytes 0.5 K/uL (0.1-1.3); Absolute Neutrophil 4.3 K/uL (1.8-8.0); Basophils % 1.1 % (0-1.3); Eosinophils % 6.2 % (0-4.4); Hemoglobin 15.8 g/dL (13.6-17.9); Lymphocytes % 28.6 % (15.3-44.8); MCH 30.8 pg (27.0-35.0); MPV 8.2 fL (7.6-11.3); Monocytes % 7.3 % (3.3-12.3); Neutrophils % 56.8 % (41.7-73.7); Nucleated Red Blood Cells % 0.2 % (0-0); Platelets 228 thou/uL (152-406); RBC Red Blood Cell Count 5.11 M/uL (4.33-5.43); Red Cell Distribution Width 14.5 % (12.1-15.2)
[2024-05-29 16:29] LABS: PT Prothrombin Time 11.2 SECONDS (9.4-12.5); PTT, Activated Partial Thromb 33.6 SECONDS (24.3-36.9); Protime INR 1.07
[2024-05-29 16:35] LABS: Anion Gap 8.3 mEq/L (5.0-15.0); Potassium 4.3 mEq/L (3.5-5.1)
[2024-05-30] MEDS ORDERED: NA CHLORIDE 0.9% 500 ML ONE (09:10)
[2024-05-30] MEDS ORDERED: LIDOCAINE 1% 20 ML MDV ONE (09:56)
[2024-05-30] MEDS ORDERED: HEPARIN 5000 UNIT/ML 1 ML VIAL ONE (09:57)
[2024-05-30] MEDS ORDERED: MIDAZOLAM HCL 2 MG/2 ML INJ ONE (09:57)
[2024-05-30] MEDS ORDERED: FENTANYL CITR 100 MCG/2 ML ONE (09:58)
[2024-05-30 10:05] VITALS: TEMP 97.9
[2024-05-30 14:04] VITALS: BP 143/68; O2SAT 97
--- NOTE | 2024-05-30 20:41 | OP ---
Date of Procedure: 05/30/2024 Surgeon: Scot Gutierrez Procedure Performed: Selective coronary angiogram. Indication For Procedure: Chest pains, abnormal stress test. Complications: None. Estimated Blood Loss: Less than 50 cc. Access: Right radial, closed by TR band. Sedation Time: 20 minutes with 1 of Versed and 25 of fentanyl. Description Of Procedure: After risks, and benefits, and alternatives were explained to patient, pat ient agreed to proceed with the procedure and signed informed consent. The patient was brought back to the labor contractor, prepped and draped in a sterile fashion. Time-out was performed. Sedation was admi nistered. Next, right radial access was obtained using ultrasound-guided micropuncture technique. T iger 4.0 catheter was advanced over a J-wire to the aortic root. Selective angiogram was done using the same catheter. At the end of procedure, catheter was moved back to the left subclavian artery wh ere the ELLSWORTH shot was done. At the end of procedure, catheter was removed over a J-wire. Sheath was removed. TR band was applied. Hemostasis was achieved. The patient was moved back to Recovery in stable condition. Findings: 1.Left main normal. 2.LAD; proximal to mid diffuse 70% to 80% disease, and mild luminal irregularities. 3.Diagonal 1 small. 4.Diagonal 2; medium-sized artery with mid 90% disease and mild luminal irregularities. 5.Left circ; mild luminal irregularities. 6.OM1; ostial 80% disease with mild luminal irregularities. 7.RCA; proximal 99%, then mid 100% occluded, gives left to right collaterals into large RPDA. 8.Left subclavian artery/ELLSWORTH patent. Assessment And Plan: Significant LAD, diagonal 2, OM1, and RCA disease. The plan is to consult CT Surgery as an outpatient for evaluation for CABG. PIPER/MODL Voice ID: [id number] Report ID: [id number]
--- NOTE | 2024-05-31 15:11 | EKG ---
Test Date: 2024-05-29 Test Time: 16:51:26 Screw Driver Operator: WES MEASUREMENT RESULTS: Intervals: Rate: 60 TN: 164 QRSD: 142 QT: 462 QTc: 462 [place]: P: 54 TN: 164 QRS: -78 T: 4 INTERPRETIVE STATEMENTS: Normal sinus rhythm Left axis deviation Right bundle branch block Inferior infarct, age undetermined Abnormal ECG Compared to ECG 02/29/2024 09:47:28 No significant changes Electronically Signed On 05-31-24 15:07:12 EMERGENCY VETERINARY TECHNICIAN by Rio Lopez
== END 2024-05-30 13:44 | disposition home or self-care (01) ==
LOC: CCL 09:00
PROVIDERS: ATTEND Internal Medicine Interventional Cardiology
DX: I25.10 Atherosclerotic heart disease of native coronary artery without angina pectoris (principal); I25.82 Chronic total occlusion of coronary artery; I48.0 Paroxysmal atrial fibrillation; I10 Essential (primary) hypertension; E11.9 Type 2 diabetes mellitus without complications; Z86.73 Personal history of transient ischemic attack (TIA), and cerebral infarction without residual deficits; Z79.4 Long term (current) use of insulin; Z79.01 Long term (current) use of anticoagulants; Z79.899 Other long term (current) drug therapy
CPT/HCPCS: 93005; 85025; 80048; 36415; 85610; 85730; 93454; 76937; C1893; Q9966; J1644; J2003; J2250; J3010; J7040; 99152; 99153